=== PATIENT | female | born 1960 | race Caucasian/White ===

== ENCOUNTER 2017-06-25 18:30 | Emergency (ER) | payer BC ==
[2017-06-25 19:14] LABS: Hematocrit 36.9 % (37.0-47.0); Hemoglobin 12.7 gm/dL (12.5-16.0); Mean Cell Volume 89.1 fl (78-100); Mean Corpuscular Hemoglobin 30.7 pg (27-31); Mean Corpuscular Hgb Conc 34.4 g/dl (32-36); Mean Platelet Volume 9.1 fl (6.0-9.5); Neutrophil # 4.3 K/mm3 (1.3-6.0); Neutrophil % 60.2 % (42-75.0); Platelet Count 313 K/mm3 (150-450); Red Blood Count 4.14 M/mm3 (4.2-5.4); Red Cell Distribution Width 11.4 % (11.5-14.0); White Blood Count 7.1 K/mm3 (4.0-10.5)
[2017-06-25 19:37] LABS: Albumin * 4.6 gm/dl (3.4-5.0); Anion Gap 13.8 mmol/L (6.8-13.8); BUN/Creatinine Ratio 13.7 (9.0-21.6); Bilirubin, Total 0.2 mg/dL (0.0-1.1); Ca. Corrected For Albumin 8.8 mg/dL (8.4-10.2); Calcium * 9.6 mg/dL (7.9-10.9); Carbon Dioxide 28.6 mmol/L (24-32.6); Potassium 3.4 mmol/L (3.4-4.6); TSH * 1.713 uIU/mL (0.358-3.74); Total Protein 8.2 gm/dL (6.2-8.2)
--- NOTE | 2017-06-25 19:42 | ERNOTE ---
Dizziness ER Record Date of Service: 06/25/17 Presenting Symptoms: dizziness Time Seen by Provider: 06/25/17 18:49 Source: patient, RN notes reviewed Exam Limitations: no limitations Immunizations: IMMUNIZATION HX Immunizations Up to Date Yes History of Influenza Vaccine Yes Hx Pneumococcal Vaccination No Allergies/Adverse Reactions: Allergies Allergy/AdvReac Type Severity Reaction Status Date / Time Fish Containing Products Allergy Intermediate FACE Verified 04/28/16 07:36 SWELLING, CHEST PAIN iodine AdvReac Mild RASH Verified 04/28/16 07:36 Home Medications: HOME MEDICATIONS Simvastatin 20 mg PO DAILY 06/19/13 [Last Taken 01/18/14] traMADol HCL [Tramadol HCl] 50 mg PO Q4H PRN 06/19/13 [Last Taken 01/18/14] Acetaminophen [Tylenol] 650 mg PO Q4H PRN 04/11/16 [Last Taken Unknown] Amitriptyline HCl 100 mg PO DAILY 04/11/16 [Last Taken Unknown] Lisinopril [Zestril] 20 mg PO DAILY 04/11/16 [Last Taken Unknown] Topiramate [Topamax] 150 mg PO HS 04/11/16 [Last Taken Unknown] Sulfamethoxazole/Trimethoprim [Bactrim Ds] 1 tab PO BID #10 tab 06/25/17 [Last Taken Unknown] - History of Present Illness Narrative: 57 year old female brought to the ED by her for dizziness that began a short time ago. She felt a little dizzy at lunch time today when she stood up from the table. She also reports feeling like there is pressure behind her eyes and reports that her ears are ringing. She states that she has had vertigo in the past and this feels different. Date (Duration): 06/25/17 Time (Timing): 18:00 Timing and Duration: gradual onset Noted on awakening:: No Severity: max: moderate Severity: currently: moderate Associated Symptoms: Present: ringing/roaring in ear, headache, light headedness. Absent: hearing loss, ear pain, nausea, vomiting, weakness, numbness, sweating, sense of confusion Sense of movement: Present: vague Decreased ability to stand/walk:: Present: off balance Usually:: Present: walks w/o assistance Prior Treament: Denies: recently seen, similar symptoms before Review of Systems - Review of Systems Constitutional: Absent: recent illness, fever, decreased activity level EYE: Present: eye pain. Absent: eye discharge, vision changes ENT: Absent: ear pain, nose congestion, sore throat Respiratory: Absent: shortness of breath, cough Cardiology: Absent: chest pain, palpitations, syncope Gastrointestinal/Abdominal: Absent: nausea, vomiting, abdominal pain Genitourinary: Present: decreased urinary output. Absent: dysuria, hematuria Musculoskeletal: Absent: back pain, joint pain Skin: Absent: rash, lesions Neurological: Present: headache, dizziness/light-headedness. Absent: weakness, numbness, tingling Endocrine: Present: no symptoms reported Hematologic/Lymphatic: Present: no symptoms reported Psych: Present: no symptoms reported - Patient's Past Medical History Patient History - Medical: Hypothyroidism, Migraines Patient History - Cardiac/Respiratory: Hypertension, Hyperlipidemia Patient History - Cancer: No Hx of Cancer Patient History - Surgical Procedures: Colonoscopy, , Hysterectomy, T & A Patient History - Other: None - Family History Father Family History - Medical: Family History - Cardiac/Respiratory: Coronary Heart Disease, COPD Mother Family History - Cardiac/Respiratory: No pertinent hx Sister Family History - Medical: Rheumatoid Arthritis Family History - Cardiac/Respiratory: No pertinent hx Grandmother-Maternal Family History - Medical: Family History - Cardiac/Respiratory: No pertinent hx - Social History Living Situations: home Abuse History: No History of abuse Psych History: No pertinent hx Smoking Status: Former smoker Alcohol Use: occasionally Drug Use: none - Immunizations Immunizations Up to Date: Yes Hx Pneumococcal Vaccination: No History of Influenza Vaccine: Yes Physical Exam - Physical Exam General Appearance: Present: wd/wn, alert, mild distress Head Exam: Present: normal inspection, no evidence of injury Eye Exam: Normal inspection: bilateral, PERRL: bilateral Ears, Nose, Throat: Present: normal ENT inspection, normal pharynx Neck: Present: normal inspection, nontender, supple Respiratory: Present: no respiratory distress, normal breath sounds, no accessory muscle use, lungs clear Cardiovascular/Chest: Present: regular rate, rhythm, no murmur, normal peripheral pulses Extremity Exam: Present: normal inspection, normal range of motion, no edema Neurological Exam: Present: alert, oriented, normal mood/affect, no motor/ sensory deficits Skin Exam: Present: normal color, warm/dry ED Progress - Results and Orders Patient's Lab Results:: I have reviewed the patient's lab results. - Vital Signs Patient's Vital Signs:: I have reviewed the patient's vital signs. Vital Signs: Vital Signs 06/25/17 06/25/17 06/25/17 18:33 18:43 19:25 Temperature 36.4 C L Pulse Rate 102 H 107 H 106 H Respiratory 16 Rate Blood Pressure 150/64 133/67 O2 Sat by Pulse 99 99 Oximetry - EKG EKG: other - Sinus tachycardia EKG read: Reviewed by me - Progress/Reassessment Chief Complaint: Dizziness Progress:: Improved Plan - Plan Plan: BUN and creatinine elevated, patient recently started taking lisinopril/hctz after being on just lisinopril for a long time. One liter NS bolus given. Verbalizes some improvement in dizziness. Urine also indicates UTI. Will start antibiotic. Discussed need to see PCP to recheck labs, patient in agreement with plan. Departure Clinical Impression: Orthostatic hypotension, Acute kidney injury Urinary tract infection Qualifiers: Urinary tract infection type: site unspecified Hematuria presence: without hematuria Qualified Code(s): N39.0 - Urinary tract infection, site not specified - Departure Disposition: Home Follow Up Needed Condition: Stable Instructions: Urinary Tract Infection, Adult, [id number], Dizziness, Easy-to- Read Additional Instructions: Stop hydrochlorthiazide - just take plan lisinopril for now Return to ER if symptoms worsen, otherwise follow up with Dr. Zee in a few days to recheck your renal function Referrals: David Zee DO [Primary Care Provider] - Prescriptions: Sulfamethoxazole/Trimethoprim [Bactrim Ds] 1 tab PO BID #10 tab
[2017-06-25 19:47] LABS: Urine Bilirubin Negative (NEGATIVE); Urine Blood 25 /ul (NEGATIVE); Urine Ketone Negative (NEGATIVE); Urine Nitrite Negative (NEGATIVE); Urine Protein Negative (NEGATIVE); Urine Urobilinogen Normal (NORMAL)
[2017-06-25 20:02] LABS: Urine Appearance Cloudy; Urine Color Yellow
[2017-06-25 20:03] LABS: Urine Bacteria 1+; Urine WBC >50 /hpf (0-5)
[2017-06-25] MEDS ORDERED: NORMAL SALINE 1,000 ML IV ONE (20:11)
[2017-06-25] MEDS ORDERED: SULFAMETHOXAZOLE/TRIMETHOPRIM 1 TAB TABLET PO ONE (21:30)
[2017-06-25 21:31] VITALS: BP 157/62
[2017-06-25] MEDS ORDERED: SULFAMETHOXAZOLE/TRIMETHOPRIM 1 TAB TABLET ONE (21:34)
== END 2017-06-25 21:42 | disposition home or self-care (01) ==
LOC: ER 18:30
DX: I95.1 Orthostatic hypotension (principal); N17.9 Acute kidney failure, unspecified; N39.0 Urinary tract infection, site not specified; Z87.891 Personal history of nicotine dependence